=== PATIENT | female | born 1975 | race Hispanic/Latino ===

== ENCOUNTER 2023-10-11 09:56 | Outpatient (CLI) | payer OTHER | END 2023-10-11 09:57 | disposition home or self-care (01) | LOC: BICMAMMO 09:56 | PROVIDERS: ATTEND Nurse Practitioner Women's Health | DX: N63.22 Unspecified lump in the left breast, upper inner quadrant (principal); Q83.8 Other congenital malformations of breast; N63.25 Unspecified lump in the left breast, overlapping quadrants | CPT/HCPCS: 77066; G0279 ==

== ENCOUNTER → 2023-10-20 | Day surgery (SDC) | payer OTHER | LOC: BICULT 12:40 | PROVIDERS: ATTEND Nurse Practitioner Women's Health | PROC: 0HB5XZX Excision of Chest Skin, External Approach, Diagnostic (ICD-10-PCS; principal; 2023-10-20) | DX: R92.8 Other abnormal and inconclusive findings on diagnostic imaging of breast (principal) | CPT/HCPCS: 19083; 88305; 88341; 88342 ==

== ENCOUNTER 2023-12-11 11:55 | Outpatient (CLI) | payer OTHER ==
[2023-12-11 13:49] LABS: #Basophils 0.1 10x3/uL (0.0-0.2); #Eosinphils 0.1 10x3/uL (0.0-0.5); #Monocytes 0.5 10x3/uL (0.0-1.1); #Neutrophils 5.9 10x3/uL (1.5-8.4); %Basophils 1.3 % (0.0-2.0); %Eosinophils 0.7 % (0.0-6.0); %Lymphocytes 13.9 % (18.0-47.0); %Monocytes 6.1 % (0.0-10.0); %Neutrophils 77.7 % (40.0-75.0); Hematocrit 42.4 % (34.9-44.5); Hemoglobin 13.9 g/dL (12.0-15.5); Mean Corpuscular HGB CONC 32.8 g/dL (32.0-36.0); Mean Corpuscular Hemoglobin 28.4 pg (27.0-33.0); Mean Corpuscular Volume 86.5 fl (81.6-98.3); Mean Platelet Volume 10.4 fl (7.4-10.4); Platelet Count 278 10x3/uL (150-450); RBC Distribution Width 13.4 % (11.5-14.5); White Blood Cell (WBC) Count 7.6 10x3/uL (3.5-10.5)
[2023-12-11 14:09] LABS: Anion Gap 14 mmol/L (10-20); BUN (Urea Nitrogen) 9 mg/dL (7.0-18.7); Calc. Creatinine Clearance 0 mL/min (70-130); Calcium 9.4 mg/dL (7.8-10.44); Carbon Dioxide 24 mmol/L (22-29); Chloride 107 mmol/L (98-107); Estimated GFR 106; Glucose 84 mg/dL (70-105); Sodium 141 mmol/L (136-145)
== END 2023-12-11 11:56 | disposition home or self-care (01) ==
LOC: LABBT 11:55
PROVIDERS: ATTEND Specialist
DX: Z01.812 Encounter for preprocedural laboratory examination (principal); C50.912 Malignant neoplasm of unspecified site of left female breast
CPT/HCPCS: 80048; 85025

== ENCOUNTER 2023-12-14 07:29 | Day surgery (SDC) | payer OTHER ==
[2023-12-11 12:38] VITALS: BMI 25.9
[2023-12-14] MEDS ORDERED: Ketorolac Tromethamine 30 MG (1 mL) VIAL ONE (09:17)
[2023-12-14] MEDS ORDERED: Acetaminophen 500 MG TAB ONE (09:18)
[2023-12-14] MEDS ORDERED: EPINEPHrine 1 MG/ML VIAL ONE (11:07)
[2023-12-14] MEDS ORDERED: Lidocaine 2% PF 5 ML VIAL ONE (11:07)
[2023-12-14] MEDS ORDERED: Isosulfan Blue 50 MG/5 ML VIAL ONE (11:07)
[2023-12-14] MEDS ORDERED: Bupivacaine 0.25% HCL 30 ML VIAL ONE (11:07)
[2023-12-14] MEDS ORDERED: Midazolam HCl 2 mg/2 ml Vial ONE ×2 (11:12→11:31)
[2023-12-14] MEDS ORDERED: CEFAZOLIN 2 GM VIAL ONE (11:22)
[2023-12-14] MEDS ORDERED: Sodium Chloride 0.9% 100 ML ONE ×2 (11:22→12:10)
[2023-12-14] MEDS ORDERED: fentaNYL PF 100 MCG/2 ML SYRINGE ONE (11:31)
[2023-12-14] MEDS ORDERED: PROPOFOL 20 ML ONE (11:31)
[2023-12-14] MEDS ORDERED: Ondansetron PF 4 MG/2 ML Vial ONE (11:32)
[2023-12-14] MEDS ORDERED: Lidocaine 1% PF 5 ML VIAL ONE (11:32)
[2023-12-14] MEDS ORDERED: Dexamethasone 4 mg/ml Vial ONE (11:32)
[2023-12-14] MEDS ORDERED: Phenylephrine 10 MG/ML VIAL ONE (12:10)
[2023-12-14] MEDS ORDERED: Glycopyrrolate 0.2 MG/ML 5 ML SYRINGE ONE (12:19)
[2023-12-14] MEDS ORDERED: HYDROcodone/Acetaminophen 5/325 mg Tablet ONE (14:25)
== END 2023-12-14 15:20 | disposition home or self-care (01) ==
LOC: SDC 07:29
PROVIDERS: ATTEND Specialist
PROC: 0HB5XZX Excision of Chest Skin, External Approach, Diagnostic (ICD-10-PCS; principal; 2023-12-14)
PROC: 0HBU0ZZ Excision of Left Breast, Open Approach (ICD-10-PCS; principal; 2023-12-14)
DX: C50.912 Malignant neoplasm of unspecified site of left female breast (principal); D05.12 Intraductal carcinoma in situ of left breast
CPT/HCPCS: 76098; 78195; 88307; A9541; C1713; J0171; J0665; J1100; J1885; J2001; J2250; J2371; J2405; J2704; J3490; Q9968

== ENCOUNTER 2024-11-21 08:36 | Outpatient (CLI) | payer OTHER | END 2024-11-21 08:37 | disposition home or self-care (01) | LOC: BICMAMMO 08:36 | PROVIDERS: ATTEND Nurse Practitioner Family | DX: Z09 Encounter for follow-up examination after completed treatment for conditions other than malignant neoplasm (principal); Z86.000 Personal history of in-situ neoplasm of breast | CPT/HCPCS: 77066; G0279 ==

== ENCOUNTER 2025-06-23 09:59 | Outpatient (CLI) | payer OTHER | END 2025-06-23 10:00 | disposition home or self-care (01) | LOC: BICMAMMO 09:59 | PROVIDERS: ATTEND Internal Medicine Hospice and Palliative Medicine | DX: N95.1 Menopausal and female climacteric states (principal); M85.89 Other specified disorders of bone density and structure, multiple sites | CPT/HCPCS: 77080 ==